=== PATIENT | female | born 1960 | race Two or more races ===

== ENCOUNTER 2024-10-16 09:08 | Emergency (ER) | payer OTHER ==
[~2024-10-16] VITALS: Ht 162.6 cm; Wt 63.5 kg
[2024-10-16 09:24] VITALS: BP 137/87; O2SAT 100
[2024-10-16] MEDS ORDERED: FOSAMAX70 MG (09:24)
[2024-10-16] MEDS ORDERED: KETOROLAC TROMETHAMINE 30 MG VIAL IM STA (11:10)
[2024-10-16] MEDS ORDERED: KETOROLAC TROMETHAMINE 60 MG VIAL IM ONE (13:27)
== END 2024-10-16 13:36 | disposition home or self-care (01) ==
LOC: ER 09:11
DX: S42.212A Unspecified displaced fracture of surgical neck of left humerus, initial encounter for closed fracture (principal); W01.0XXA Fall on same level from slipping, tripping and stumbling without subsequent striking against object, initial encounter; Y93.89 Activity, other specified; Y92.89 Other specified places as the place of occurrence of the external cause
CPT/HCPCS: 96372; 99283; J1885